=== PATIENT | female | born 1935 | race Caucasian/White ===

== ENCOUNTER 2019-01-09 10:13 | Inpatient (IN) ==
[~2019-01-09 10:13] MED LIST: *HR* EPINEPHrine 1 MG/10 ML SYRINGE IVP ONE; EPINEPHrine 1 MG/ML VIAL IV ONE
[2019-01-09] MEDS ORDERED: 0.9 % Sodium Chloride 1,000 ML ONE ×5 (10:31→12:57)
[2019-01-09] MEDS: 0.9 % Sodium Chloride 1,000 ML IVC ONE ×4 (10:58→13:53)
[2019-01-09 12:13] LABS: Basophils % 0.2 %; Eosinophils % 0.1 %; Hematocrit 46.4 % (35.3-44.9); Lymphocytes # 3.9 K/mcL (0.6-4.6); Lymphocytes % 21.9 %; Mean Corpuscular HGB Conc 30.2 g/dL (31.6-35.5); Mean Corpuscular Hemoglobin 30.9 pg (28.0-33.3); Mean Corpuscular Volume 102.4 fL (83.0-100.0); Monocytes # 1.4 K/mcL (0.0-1.3); Monocytes % 7.7 %; Neutrophils # 12.2 K/mcL (1.6-8.9); Nucleated Red Blood Cells 0.1 /100 WBC (0); Platelet Count 104 K/mcL (140-400); Red Blood Count 4.53 M/mcL (3.82-4.97); Red Cell Distribution Width 16.1 % (11.5-14.5); Segmented Neutrophils % 69.1 %; White Blood Count 17.7 K/mcL (4.3-11.1)
[2019-01-09 12:15] LABS: Bilirubin,Urine Moderate (Negative); Blood,Urine Large (Negative); Clarity,Urine Turbid (Clear); Color,Urine Red (Yellow); Glucose,Urine (UA) Normal (Normal); Ketones,Urine Trace mg/dL (Negative); Leukocyte Esterase,Urine Moderate (Negative); Nitrite,Urine Positive (Negative); PH,Urine 6.5 pH Units (5.0-8.0); Protein,Urine >=300 mg/dL (Neg-Trace); Specific Gravity,Urine 1.028 (1.010-1.025); Urobilinogen,Urine Normal (Normal)
[2019-01-09 12:19] LABS: Squamous Epithelial Cell,Urine Many per lpf (None-Few); WBC,Urine TNTC per hpf (0-3)
[2019-01-09 12:20] LABS: Amphetamine Screen,Urine Negative ng/mL (Cutoff=1000); Barbiturate Screen,Urine Negative ng/mL (Cutoff=200); Benzodiazepines Screen,Urine Negative ng/mL (Cutoff=200); Cannabinoid Screen,Urine Negative ng/mL (Cutoff = 50); Cocaine Screen,Urine Negative ng/mL (Cutoff= 300); Opiate Screen,Urine Negative ng/mL (Cutoff=300); Phencyclidine Screen,Urine Negative ng/mL (Cutoff=25)
[2019-01-09 12:25] LABS: INR 1.6; Prothrombin Time 18.4 Seconds (9.4-12.1)
[2019-01-09 12:37] LABS: Bacteria,Urine Many per hpf (None-Few); RBC,Urine 50-100 per hpf (0-3)
[2019-01-09 12:38] LABS: Alanine Aminotransferase 22 Units/L (7-52); Albumin 2.6 g/dL (3.5-5.7); Albumin/Globulin Ratio 1.4 (1.1-2.2); Alkaline Phosphatase 65 Units/L (34-104); Aspartate Amino Transferase 14 Units/L (13-39); BUN/Creatinine Ratio 24 (6-26); Bilirubin,Indirect 0.4 mg/dL (0.0-1.2); Bilirubin,Total 0.4 mg/dL (0.3-1.0); Blood Urea Nitrogen 128 mg/dL (8-23); Calcium 7.1 mg/dL (8.6-10.3); Carbon Dioxide 13 mEq/L (23-29); Chloride 135 mEq/L (98-107); Creatine Kinase 87 Units/L (30-223); Ethanol < 10 mg/dL (Less than 10); Globulin 1.9 g/dL (2.4-3.5); Glucose 220 mg/dL (70-105); Osmolality,Calculated 396 (280-300); Potassium 3.6 mEq/L (3.5-5.1); Sodium 169 mEq/L (136-145); Total Protein 4.5 g/dL (6.4-8.9); eGFR For African Americans 10 (> 60); eGFR For Non-African Americans 8 (> 60)
[2019-01-09 12:40] LABS: Hyaline Casts,Urine None Seen per lpf (None-Few)
[2019-01-09] MEDS ORDERED: Piperacillin/Tazobactam 3.375 GM in Water for inj. (sterile) 20 ML IVP ONE (13:01)
[2019-01-09] MEDS ORDERED: *HR* Norepinephrine 4 MG/4 ML VIAL IVC ONE (13:13)
[2019-01-09] MEDS ORDERED: 0.9 % Sodium Chloride 250 ML ONE (13:13)
[2019-01-09] MEDS: Norepinephrine 4 MG in 0.9 % Sodium Chloride 250 ML IVC SCH ×3 (13:17→21:46)
[2019-01-09] MEDS ORDERED: Acetaminophen 325 MG TABLET PO PRN (14:20)
[2019-01-09] MEDS ORDERED: Naloxone 0.4 MG/ML INJ IVP PRN (14:20)
[2019-01-09] MEDS ORDERED: Dextrose Gel 15 GM/37.5 ML TUBE PO PRN ×2 (14:31)
[2019-01-09] MEDS ORDERED: *HR* Dextrose 50 % in Water (Syg) 50 ML SYRINGE IVP PRN (14:31)
[2019-01-09] MEDS ORDERED: D5% in Water 1,000 ML IVC PRN (14:31)
[2019-01-09 14:39] LABS: Magnesium 2.2 mg/dL (1.6-2.6); Phosphorous 6.6 mg/dL (2.7-4.5)
[2019-01-09] MEDS ORDERED: cefTRIAXone 2,000 MG in Water for inj. (sterile) 20 ML IVP SCH (15:00)
[2019-01-09] MEDS ORDERED: *HR* Heparin 5,000 UNIT/ML VIAL IVP ONE ×2 (15:40→16:56)
[2019-01-09] MEDS ORDERED: *HR* Heparin 5,000 UNIT/ML VIAL IVP PRN ×4 (15:40→16:56)
[2019-01-09 16:17] LABS: ABG Base Excess -12 mEq/L (-2 to 3); ABG HCO3 15 mEq/L (21-27); ABG Oxygen Saturation 100 % (95-98); ABG PCO2 38 mmHg (35-45); ABG PH 7.21 pH Units (7.32-7.45); ABG PO2 346 mmHg (85-104); ABG TCO2 16 mEq/L (20-26)
[2019-01-09 16:20] LABS: Calcium 6.9 mg/dL (8.6-10.3); Magnesium 2.1 mg/dL (1.6-2.6); Potassium 4.3 mEq/L (3.5-5.1)
[2019-01-09] MEDS: D5% in Water 1,000 ML IVC SCH (17:15)
[2019-01-09] MEDS: Heparin 25,000 UNIT/250 ML D5W 25,000 UNIT/250 ML IV.SOLN IVC SCH (17:15)
[2019-01-09] MEDS ORDERED: Perflutren Lipid Microsphere 1.3 ML in 0.9 % Sodium Chloride 8.7 ML IVP ONE (17:20)
[2019-01-09 17:33] LABS: Thyroid Stimulating Hormone 0.599 mcIU/mL (0.340-5.600)
[2019-01-09] MEDS ORDERED: Perflutren Lipid Microsphere 2 ML VIAL ONE (17:33)
[2019-01-09 17:34] LABS: Triiodothyronine (T3) Free 1.99 pg/mL (2.50-3.90)
[2019-01-09] MEDS ORDERED: *HR* Heparin 5,000 UNIT/ML VIAL SQ SCH (18:00)
[2019-01-09 18:21] LABS: Mean Corpuscular HGB Conc 29.8 g/dL (31.6-35.5); Mean Corpuscular Hemoglobin 30.9 pg (28.0-33.3); Mean Corpuscular Volume 103.8 fL (83.0-100.0); Mean Platelet Volume 14.9 fL (9.4-12.4); Platelet Count 106 K/mcL (140-400); Red Blood Count 4.53 M/mcL (3.82-4.97)
[2019-01-09] MEDS: Piperacillin/Tazobactam 3.375 GM in 0.9 % Sodium Chloride Mini Bag 100 ML IVPB SCH (18:32)
[2019-01-09] MEDS: Insulin LISPRO 300 UNITS/3 ML VIAL SQ SCH (18:32)
[2019-01-09 18:34] LABS: Estimated Average Glucose 151 mg/dl
[2019-01-09 18:37] LABS: Magnesium 2.1 mg/dL (1.6-2.6); Potassium 4.1 mEq/L (3.5-5.1)
[2019-01-09 21:13] LABS: Protein/Creatinine Ratio,Urine 3.33 mg/mg (0.00-0.20); Sodium, Urine 82.1 mEq/L
[2019-01-09 21:19] LABS: Troponin I 1.72 ng/mL (< 0.04)
[2019-01-09 21:45] LABS: Calcium 7.1 mg/dL (8.6-10.3); Magnesium 2.1 mg/dL (1.6-2.6); Potassium 3.6 mEq/L (3.5-5.1)
[2019-01-10] MEDS: Insulin LISPRO 300 UNITS/3 ML VIAL SQ SCH ×4 (00:17→17:55)
[2019-01-10 02:39] LABS: Calcium 7.1 mg/dL (8.6-10.3); Potassium 3.4 mEq/L (3.5-5.1)
[2019-01-10] MEDS: D5% in Water 1,000 ML IVC SCH ×3 (03:09→21:25)
[2019-01-10 04:33] LABS: Eosinophils % 1.1 %; Mean Corpuscular Volume 99.3 fL (83.0-100.0); Red Cell Distribution Width 15.8 % (11.5-14.5)
[2019-01-10 04:35] LABS: Basophils # 0.1 K/mcL (0.0-0.2); Basophils % 0.4 %; Eosinophils # 0.2 K/mcL (0.0-0.6); Hematocrit 43.5 % (35.3-44.9); Hemoglobin 13.6 g/dL (11.5-15.4); Immature Granulocytes % 1.4 % (0-4); Immature Platelets 17.6 % (1.1-6.1); Lymphocytes # 3.6 K/mcL (0.6-4.6); Lymphocytes % 19.8 %; Mean Corpuscular HGB Conc 31.3 g/dL (31.6-35.5); Mean Corpuscular Hemoglobin 31.1 pg (28.0-33.3); Mean Platelet Volume 14.8 fL (9.4-12.4); Monocytes # 1.5 K/mcL (0.0-1.3); Monocytes % 8.1 %; Neutrophils # 12.7 K/mcL (1.6-8.9); Nucleated Red Blood Cells 0.2 /100 WBC (0); Red Blood Count 4.38 M/mcL (3.82-4.97); Segmented Neutrophils % 69.2 %; White Blood Count 18.3 K/mcL (4.3-11.1)
[2019-01-10 04:39] LABS: Platelet Count 91 K/mcL (140-400)
[2019-01-10 04:58] LABS: Calcium 7.3 mg/dL (8.6-10.3); Potassium 3.5 mEq/L (3.5-5.1)
[2019-01-10 05:07] LABS: Complement C3 92 mg/dL (87-200)
[2019-01-10] MEDS: Piperacillin/Tazobactam 3.375 GM in 0.9 % Sodium Chloride Mini Bag 100 ML IVPB SCH ×2 (06:22→17:53)
[2019-01-10 06:47] LABS: Phosphorous 2.8 mg/dL (2.7-4.5)
[2019-01-10 07:04] LABS: Albumin 2.7 g/dL (3.5-5.7); Albumin/Globulin Ratio 1.4 (1.1-2.2); Bilirubin,Direct 0.1 mg/dL (0.0-0.2); Bilirubin,Indirect 0.5 mg/dL (0.0-1.2); Bilirubin,Total 0.6 mg/dL (0.3-1.0); Calcium 7.3 mg/dL (8.6-10.3); Magnesium 1.9 mg/dL (1.6-2.6); Potassium 3.4 mEq/L (3.5-5.1); Total Protein 4.7 g/dL (6.4-8.9)
[2019-01-10 07:11] LABS: Heparin anti-factor XA UFH 0.64 IU/mL (0.30-0.70); INR 1.7; Prothrombin Time 19.4 Seconds (9.4-12.1)
[2019-01-10 08:41] LABS: VBG Ionized Calcium 1.16 mmol/L (1.15-1.35)
[2019-01-10] MEDS: D5% in 0.45% NACL 1,000 ML IVC SCH ×2 (09:26→11:26)
[2019-01-10 10:59] LABS: Calcium 7.1 mg/dL (8.6-10.3); Magnesium 1.9 mg/dL (1.6-2.6); Potassium 3.6 mEq/L (3.5-5.1)
[2019-01-10] MEDS ORDERED: D5% in Water 1,000 ML IVC PRN (11:02)
[2019-01-10] MEDS: Norepinephrine 4 MG in 0.9 % Sodium Chloride 250 ML IVC SCH (14:40)
[2019-01-10 14:50] LABS: Calcium 7.4 mg/dL (8.6-10.3); Magnesium 1.9 mg/dL (1.6-2.6); Potassium 3.7 mEq/L (3.5-5.1)
[2019-01-10] MEDS: Aspirin 81 MG TAB.CHEW PO SCH (15:10)
[2019-01-10] MEDS: Heparin 25,000 UNIT/250 ML D5W 25,000 UNIT/250 ML IV.SOLN IVC SCH (18:37)
[2019-01-10 21:36] LABS: Calcium 7.4 mg/dL (8.6-10.3); Magnesium 1.9 mg/dL (1.6-2.6); Potassium 3.4 mEq/L (3.5-5.1)
[2019-01-10 22:50] LABS: Calcium 7.3 mg/dL (8.6-10.3); Potassium 3.4 mEq/L (3.5-5.1)
[2019-01-11] MEDS: Insulin LISPRO 300 UNITS/3 ML VIAL SQ SCH ×4 (00:17→18:30)
[2019-01-11 02:41] LABS: Calcium 7.1 mg/dL (8.6-10.3); Magnesium 1.7 mg/dL (1.6-2.6); Potassium 2.8 mEq/L (3.5-5.1)
[2019-01-11] MEDS ORDERED: Potassium Chloride 40 MEQ/200 ML BAG IVPB ONE (04:14)
[2019-01-11] MEDS: Calcium Gluconate 1gm/50mL 1 GM/50 ML BAG IVPB SCH ×2 (04:18→05:24)
[2019-01-11] MEDS: D5% in 0.45% NACL 1,000 ML IVC SCH ×2 (04:19→05:43)
[2019-01-11] MEDS: D5% in Water 1,000 ML IVC SCH ×3 (05:21→18:27)
[2019-01-11] MEDS: Piperacillin/Tazobactam 3.375 GM in 0.9 % Sodium Chloride Mini Bag 100 ML IVPB SCH ×2 (05:33→18:24)
[2019-01-11 06:22] LABS: Basophils % 0.3 %; Eosinophils # 0.3 K/mcL (0.0-0.6); Hematocrit 38.7 % (35.3-44.9); Hemoglobin 12.5 g/dL (11.5-15.4); Immature Granulocytes % 0.6 % (0-4); Lymphocytes # 2.5 K/mcL (0.6-4.6); Lymphocytes % 25.1 %; Mean Corpuscular HGB Conc 32.3 g/dL (31.6-35.5); Mean Corpuscular Hemoglobin 31.3 pg (28.0-33.3); Mean Platelet Volume 14.6 fL (9.4-12.4); Monocytes # 0.6 K/mcL (0.0-1.3); Monocytes % 6.5 %; Neutrophils # 6.4 K/mcL (1.6-8.9); Red Blood Count 3.99 M/mcL (3.82-4.97); Red Cell Distribution Width 15.7 % (11.5-14.5); Segmented Neutrophils % 64.5 %; White Blood Count 9.9 K/mcL (4.3-11.1)
[2019-01-11 06:23] LABS: Platelet Count 71 K/mcL (140-400)
[2019-01-11 06:42] LABS: Calcium 7.9 mg/dL (8.6-10.3); Magnesium 2.2 mg/dL (1.6-2.6); Potassium 3.7 mEq/L (3.5-5.1)
[2019-01-11] MEDS: Aspirin 81 MG TAB.CHEW PO SCH (07:26)
[2019-01-11] MEDS ORDERED: Aminoglycoside Consult 1 EACH MC ONE (08:22)
[2019-01-11 10:44] LABS: Calcium 7.6 mg/dL (8.6-10.3); Magnesium 2.1 mg/dL (1.6-2.6); Potassium 3.6 mEq/L (3.5-5.1)
[2019-01-11 16:48] LABS: Calcium 7.5 mg/dL (8.6-10.3); Magnesium 1.9 mg/dL (1.6-2.6); Potassium 3.5 mEq/L (3.5-5.1)
[2019-01-11 23:13] LABS: Calcium 7.5 mg/dL (8.6-10.3); Magnesium 1.8 mg/dL (1.6-2.6); Potassium 3.4 mEq/L (3.5-5.1)
[2019-01-12] MEDS: Insulin LISPRO 300 UNITS/3 ML VIAL SQ SCH ×4 (01:04→17:15)
[2019-01-12] MEDS: Heparin 25,000 UNIT/250 ML D5W 25,000 UNIT/250 ML IV.SOLN IVC SCH (01:56)
[2019-01-12 04:18] LABS: BUN/Creatinine Ratio 24 (6-26); Blood Urea Nitrogen 24 mg/dL (8-23); Calcium 7.4 mg/dL (8.6-10.3); Carbon Dioxide 17 mEq/L (23-29); Chloride 122 mEq/L (98-107); Glucose 181 mg/dL (70-105); Magnesium 1.8 mg/dL (1.6-2.6); Osmolality,Calculated 309 (280-300); Potassium 3.4 mEq/L (3.5-5.1); Sodium 145 mEq/L (136-145); eGFR For African Americans > 60 (> 60); eGFR For Non-African Americans 53 (> 60)
[2019-01-12] MEDS: D5% in Water 1,000 ML IVC SCH (05:28)
[2019-01-12] MEDS: Calcium Gluconate 1gm/50mL 1 GM/50 ML BAG IVPB SCH ×2 (05:29→05:58)
[2019-01-12] MEDS: Piperacillin/Tazobactam 3.375 GM in 0.9 % Sodium Chloride Mini Bag 100 ML IVPB SCH ×2 (05:33→17:13)
[2019-01-12] MEDS: Aspirin 81 MG TAB.CHEW PO SCH (07:05)
[2019-01-12 09:05] LABS: BUN/Creatinine Ratio 21 (6-26); Blood Urea Nitrogen 21 mg/dL (8-23); Calcium 8.1 mg/dL (8.6-10.3); Carbon Dioxide 19 mEq/L (23-29); Chloride 118 mEq/L (98-107); Glucose 230 mg/dL (70-105); Magnesium 1.9 mg/dL (1.6-2.6); Osmolality,Calculated 306 (280-300); Potassium 3.8 mEq/L (3.5-5.1); Sodium 143 mEq/L (136-145); eGFR For African Americans > 60 (> 60); eGFR For Non-African Americans 53 (> 60)
[2019-01-12 09:47] LABS: ANA IgG by ELISA NONE DETECTED (None Detected)
[2019-01-12] MEDS ORDERED: *HR* Dextrose 50 % in Water (Syg) 50 ML SYRINGE IVP PRN (12:55)
[2019-01-12] MEDS ORDERED: *HR* Heparin 5,000 UNIT/ML VIAL IVP PRN ×2 (12:55)
[2019-01-12] MEDS ORDERED: D5% in Water 1,000 ML IVC PRN (12:55)
[2019-01-12] MEDS ORDERED: Naloxone 0.4 MG/ML INJ IVP PRN (12:55)
[2019-01-12] MEDS ORDERED: Acetaminophen 325 MG TABLET PO PRN (12:55)
[2019-01-12] MEDS ORDERED: Dextrose Gel 15 GM/37.5 ML TUBE PO PRN ×2 (12:55)
[2019-01-12] MEDS ORDERED: Heparin 25,000 UNIT/250 ML D5W 25,000 UNIT/250 ML IV.SOLN IVC SCH (12:55)
[2019-01-12 18:13] LABS: Basophils % 0.3 %; Eosinophils # 0.2 K/mcL (0.0-0.6); Eosinophils % 1.7 %; Hematocrit 43.5 % (35.3-44.9); Hemoglobin 14.6 g/dL (11.5-15.4); Immature Granulocytes % 1.1 % (0-4); Lymphocytes # 2.1 K/mcL (0.6-4.6); Lymphocytes % 22.1 %; Mean Corpuscular HGB Conc 33.6 g/dL (31.6-35.5); Mean Corpuscular Hemoglobin 30.9 pg (28.0-33.3); Mean Corpuscular Volume 92.2 fL (83.0-100.0); Monocytes # 0.7 K/mcL (0.0-1.3); Monocytes % 7.1 %; Neutrophils # 6.4 K/mcL (1.6-8.9); Red Blood Count 4.72 M/mcL (3.82-4.97); Red Cell Distribution Width 15.2 % (11.5-14.5); Segmented Neutrophils % 67.7 %; White Blood Count 9.4 K/mcL (4.3-11.1)
[2019-01-12 18:15] LABS: Platelet Count 86 K/mcL (140-400)
[2019-01-12 18:16] LABS: Platelet Estimate Decreased (Normal)
[2019-01-12 18:31] LABS: BUN/Creatinine Ratio 19 (6-26); Blood Urea Nitrogen 17 mg/dL (8-23); Calcium 7.9 mg/dL (8.6-10.3); Carbon Dioxide 18 mEq/L (23-29); Chloride 119 mEq/L (98-107); Glucose 212 mg/dL (70-105); Magnesium 1.8 mg/dL (1.6-2.6); Osmolality,Calculated 300 (280-300); Potassium 3.8 mEq/L (3.5-5.1); Sodium 141 mEq/L (136-145); eGFR For African Americans > 60 (> 60); eGFR For Non-African Americans 59 (> 60)
[2019-01-12 22:30] LABS: Kappa Qnt Free Light Chains 3.6 mg/dL (0.33-1.94); Lambda Qnt Free Light Chains 2.1 mg/dL (0.57-2.63)
[2019-01-12 23:06] LABS: BUN/Creatinine Ratio 18 (6-26); Blood Urea Nitrogen 16 mg/dL (8-23); Calcium 7.9 mg/dL (8.6-10.3); Carbon Dioxide 17 mEq/L (23-29); Chloride 120 mEq/L (98-107); Glucose 191 mg/dL (70-105); Magnesium 1.8 mg/dL (1.6-2.6); Osmolality,Calculated 300 (280-300); Potassium 3.6 mEq/L (3.5-5.1); Sodium 142 mEq/L (136-145); eGFR For African Americans > 60 (> 60); eGFR For Non-African Americans > 60 (> 60)
[2019-01-13] MEDS: Insulin LISPRO 300 UNITS/3 ML VIAL SQ SCH ×4 (00:47→18:45)
[2019-01-13] MEDS: Piperacillin/Tazobactam 3.375 GM in 0.9 % Sodium Chloride Mini Bag 100 ML IVPB SCH (05:35)
[2019-01-13 06:16] LABS: BUN/Creatinine Ratio 18 (6-26); Blood Urea Nitrogen 16 mg/dL (8-23); Calcium 7.9 mg/dL (8.6-10.3); Carbon Dioxide 19 mEq/L (23-29); Chloride 119 mEq/L (98-107); Glucose 181 mg/dL (70-105); Magnesium 1.8 mg/dL (1.6-2.6); Osmolality,Calculated 312 (280-300); Potassium 3.8 mEq/L (3.5-5.1); Sodium 148 mEq/L (136-145); eGFR For African Americans > 60 (> 60); eGFR For Non-African Americans > 60 (> 60)
[2019-01-13] MEDS: Aspirin 81 MG TAB.CHEW PO SCH (07:43)
[2019-01-13 12:54] LABS: Serine Protease-3 Antibody 1 AU/mL (0-19)
[2019-01-13] MEDS: cefTRIAXone 2,000 MG in 0.9 % Sodium Chloride Mini Bag 100 ML IVPB SCH (14:16)
[2019-01-13 23:29] LABS: Alpha 2 Globulin (PEP) 0.65 g/dL (0.48-1.05); Beta Globulin (PEP) 0.44 g/dL (0.48-1.10)
[2019-01-14] MEDS: Insulin LISPRO 300 UNITS/3 ML VIAL SQ SCH ×4 (00:27→17:53)
[2019-01-14] MEDS: cefTRIAXone 2,000 MG in 0.9 % Sodium Chloride Mini Bag 100 ML IVPB SCH (08:13)
[2019-01-14] MEDS: Aspirin 81 MG TAB.CHEW PO SCH (08:13)
[2019-01-14 09:36] LABS: IFE Reflexed IFE Done
[2019-01-14 09:43] LABS: Immunoglobulin G 634 mg/dL (768-1632); Immunoglobulin M 77 mg/dL (35-263)
[2019-01-14 09:44] LABS: Immunoglobulin A 140 mg/dL (68-408)
[2019-01-14] MEDS: amLODIPine 5 MG TABLET PO SCH (11:55)
[2019-01-14 13:58] LABS: BUN/Creatinine Ratio 17 (6-26); Blood Urea Nitrogen 11 mg/dL (8-23); Calcium 7.2 mg/dL (8.6-10.3); Carbon Dioxide 20 mEq/L (23-29); Chloride 122 mEq/L (98-107); Glucose 123 mg/dL (70-105); Osmolality,Calculated 307 (280-300); Potassium 3.4 mEq/L (3.5-5.1); Sodium 148 mEq/L (136-145); eGFR For African Americans > 60 (> 60); eGFR For Non-African Americans > 60 (> 60)
[2019-01-15] MEDS: Insulin LISPRO 300 UNITS/3 ML VIAL SQ SCH ×4 (00:29→17:10)
[2019-01-15 05:08] LABS: Red Cell Distribution Width 15.7 % (11.5-14.5); Segmented Neutrophils % 64.1 %
[2019-01-15 05:10] LABS: Basophils % 0.4 %; Eosinophils # 0.4 K/mcL (0.0-0.6); Eosinophils % 3.5 %; Hematocrit 40.6 % (35.3-44.9); Hemoglobin 13.1 g/dL (11.5-15.4); Immature Platelets 17.1 % (1.1-6.1); Lymphocytes # 2.3 K/mcL (0.6-4.6); Lymphocytes % 22.1 %; Mean Corpuscular HGB Conc 32.3 g/dL (31.6-35.5); Mean Corpuscular Hemoglobin 30.6 pg (28.0-33.3); Mean Corpuscular Volume 94.9 fL (83.0-100.0); Monocytes # 0.9 K/mcL (0.0-1.3); Monocytes % 8.9 %; Neutrophils # 6.7 K/mcL (1.6-8.9); Platelet Count 105 K/mcL (140-400); Red Blood Count 4.28 M/mcL (3.82-4.97); White Blood Count 10.4 K/mcL (4.3-11.1)
[2019-01-15 05:28] LABS: BUN/Creatinine Ratio 15 (6-26); Blood Urea Nitrogen 9 mg/dL (8-23); Calcium 7.3 mg/dL (8.6-10.3); Carbon Dioxide 19 mEq/L (23-29); Chloride 121 mEq/L (98-107); Glucose 121 mg/dL (70-105); Osmolality,Calculated 302 (280-300); Potassium 3.4 mEq/L (3.5-5.1); Sodium 146 mEq/L (136-145); eGFR For African Americans > 60 (> 60); eGFR For Non-African Americans > 60 (> 60)
[2019-01-15] MEDS ORDERED: Potassium Chloride Elixir 20 MEQ/15 ML UDC PO ONE (08:30)
[2019-01-15] MEDS: amLODIPine 5 MG TABLET PO SCH (08:35)
[2019-01-15] MEDS: Aspirin 81 MG TAB.CHEW PO SCH (08:35)
[2019-01-15] MEDS: cefTRIAXone 2,000 MG in 0.9 % Sodium Chloride Mini Bag 100 ML IVPB SCH (08:35)
[2019-01-15] MEDS: D5% in Water 250 ML IVC SCH (17:27)
[2019-01-16] MEDS: D5% in Water 250 ML IVC SCH ×4 (00:30→17:50)
[2019-01-16 05:37] LABS: Basophils % 0.2 %; Eosinophils # 0.3 K/mcL (0.0-0.6); Eosinophils % 2.9 %; Immature Granulocytes % 0.8 % (0-4); Lymphocytes # 2.3 K/mcL (0.6-4.6); Lymphocytes % 23.8 %; Mean Corpuscular HGB Conc 33.3 g/dL (31.6-35.5); Mean Corpuscular Volume 93.1 fL (83.0-100.0); Mean Platelet Volume 13.7 fL (9.4-12.4); Monocytes # 0.8 K/mcL (0.0-1.3); Monocytes % 8.6 %; Neutrophils # 6.3 K/mcL (1.6-8.9); Platelet Count 122 K/mcL (140-400); Red Blood Count 4.19 M/mcL (3.82-4.97); Red Cell Distribution Width 15.8 % (11.5-14.5); Segmented Neutrophils % 63.7 %; White Blood Count 9.8 K/mcL (4.3-11.1)
[2019-01-16] MEDS: Insulin LISPRO 300 UNITS/3 ML VIAL SQ SCH ×4 (05:46→17:50)
[2019-01-16 05:59] LABS: BUN/Creatinine Ratio 14 (6-26); Blood Urea Nitrogen 8 mg/dL (8-23); Calcium 7.4 mg/dL (8.6-10.3); Carbon Dioxide 22 mEq/L (23-29); Chloride 114 mEq/L (98-107); Glucose 170 mg/dL (70-105); Osmolality,Calculated 302 (280-300); Potassium 3.2 mEq/L (3.5-5.1); Sodium 145 mEq/L (136-145); eGFR For African Americans > 60 (> 60); eGFR For Non-African Americans > 60 (> 60)
[2019-01-16] MEDS: amLODIPine 5 MG TABLET PO SCH (09:32)
[2019-01-16] MEDS: Aspirin 81 MG TAB.CHEW PO SCH (09:32)
[2019-01-16] MEDS: cefTRIAXone 2,000 MG in 0.9 % Sodium Chloride Mini Bag 100 ML IVPB SCH (09:32)
[2019-01-17] MEDS: D5% in Water 250 ML IVC SCH ×2 (00:10→06:18)
[2019-01-17] MEDS: Insulin LISPRO 300 UNITS/3 ML VIAL SQ SCH ×2 (03:09→06:12)
[2019-01-17 20:13] LABS: BUN/Creatinine Ratio 12 (6-26); Blood Urea Nitrogen 6 mg/dL (8-23); Calcium 7.7 mg/dL (8.6-10.3); Carbon Dioxide 24 mEq/L (23-29); Chloride 110 mEq/L (98-107); Glucose 151 mg/dL (70-105); Osmolality,Calculated 297 (280-300); Potassium 3.5 mEq/L (3.5-5.1); Sodium 143 mEq/L (136-145); eGFR For African Americans > 60 (> 60); eGFR For Non-African Americans > 60 (> 60)
[2019-01-18 01:07] LABS: BUN/Creatinine Ratio 14 (6-26); Blood Urea Nitrogen 9 mg/dL (8-23); Calcium 7.7 mg/dL (8.6-10.3); Carbon Dioxide 24 mEq/L (23-29); Chloride 109 mEq/L (98-107); Glucose 139 mg/dL (70-105); Osmolality,Calculated 289 (280-300); Potassium 3.3 mEq/L (3.5-5.1); Sodium 139 mEq/L (136-145); eGFR For African Americans > 60 (> 60); eGFR For Non-African Americans > 60 (> 60)
[2019-01-18] MEDS: Insulin LISPRO 300 UNITS/3 ML VIAL SQ SCH ×5 (01:21→17:53)
[2019-01-18] MEDS: Aspirin 81 MG TAB.CHEW PO SCH ×2 (02:16→09:36)
[2019-01-18] MEDS: cefTRIAXone 2,000 MG in 0.9 % Sodium Chloride Mini Bag 100 ML IVPB SCH ×2 (02:19→09:36)
[2019-01-18] MEDS: amLODIPine 5 MG TABLET PO SCH ×2 (02:19→09:36)
[2019-01-18] MEDS: D5% in Water 250 ML IVC SCH ×5 (02:20→23:52)
[2019-01-19] MEDS: Insulin LISPRO 300 UNITS/3 ML VIAL SQ SCH ×3 (01:08→11:24)
[2019-01-19] MEDS: D5% in Water 250 ML IVC SCH ×2 (05:18→06:34)
[2019-01-19 07:20] LABS: BUN/Creatinine Ratio 10 (6-26); Blood Urea Nitrogen 5 mg/dL (8-23); Calcium 7.8 mg/dL (8.6-10.3); Carbon Dioxide 25 mEq/L (23-29); Chloride 105 mEq/L (98-107); Glucose 144 mg/dL (70-105); Osmolality,Calculated 284 (280-300); Potassium 3.3 mEq/L (3.5-5.1); Sodium 137 mEq/L (136-145); eGFR For African Americans > 60 (> 60); eGFR For Non-African Americans > 60 (> 60)
[2019-01-19] MEDS: amLODIPine 5 MG TABLET PO SCH (10:54)
[2019-01-19] MEDS: Aspirin 81 MG TAB.CHEW PO SCH (10:54)
[2019-01-19 11:07] VITALS: BP 151/81
== END 2019-01-19 18:03 | DRG 871 ==
LOC: EMEROOARM 10:13 → ICNU 13:30 → SUATTDRO 14:31 → ICNU 14:31 → 2NNU 01-12 14:19 → 2ANU 01-15 10:21
PROVIDERS: ADMIT Pediatrics; ATTEND Family Medicine